=== PATIENT | female | born 1975 | race Caucasian/White ===

== ENCOUNTER 2017-04-17 19:43 | Emergency (ER) | payer BC ==
[~2017-04-17] VITALS: Ht 167.6 cm; Wt 84.9 kg
[~2017-04-17 19:43] MED LIST: MTRUNK PO; ONDA4TAB46 PO; PRENTAB26 PO; TYLUNK PO
[2017-04-17 19:46] VITALS: TEMP 36.7; Ht 167.6 cm; Wt 84.9 kg
[2017-04-17] MEDS ORDERED: HYDROmorphone INJ 1 MG/ML SYR IV STA (20:08)
[2017-04-17] MEDS ORDERED: KETOROLAC TROMETHAMINE 30 MG/ML VIAL IV STA (20:08)
[2017-04-17] MEDS ORDERED: SODIUM CHLORIDE 0.9% 1000ML 1,000 ML IV STA (20:08)
[2017-04-17] MEDS ORDERED: METOCLOPRAMIDE HCL INJ 5 MG/ML 2 ML VIAL IV STA (20:08)
[2017-04-17] MEDS ORDERED: LEVO88TA PO (20:21)
[2017-04-17] MEDS ORDERED: SERT-234 PO (20:21)
--- NOTE | 2017-04-17 20:25 | EMERGENCY ROOM VISIT NOTE ---
History Report prepared by Fanny: Jamar Lal Under the Supervision of: Dr. Tomer Eldridge M.D. First contact with patient: 19:55 Chief Complaint: ABDOMINAL PAIN Stated Complaint: PAIN IN ABD UPPER RIGHT History of Present Illness The patient is a 41 year old female who presents to the Emergency Room with complaints of persistent abdominal pain for the past 4 days. The patient has had off and on pain in her right upper quadrant for the past year. She had a HIDA scan a year ago and it was normal. The patient notes that over the past few days her discomfort has been acute and significantly worse than normal. The discomfort radiates to her back and is worsened with food. She also complains of nausea, GERD, and reflux. She has been taking Zantac and Pepcid. Source of History: patient Onset: past 4 days Position: abdomen (RUQ) Timing: other (persistent) Associated Symptoms: + back pain (radiates to her back ), + nausea Note: Other associated symptoms: GERD and reflux Review of Systems See HPI for pertinent positives & negatives. A total of 10 systems reviewed and were otherwise negative. Past Medical & Surgical Medical Problems: (1) Anxiety (2) Bronchitis (3) Hypothyroid (4) IBS (irritable bowel syndrome) (5) Mitral valve prolapse (6) Stomach problems Surgical Problems: (1) S/P tonsillectomy Family History Unobtainable family history due to adoption Social History Smoking Status: Current Some Day Smoker Alcohol Use: occasionally Marital Status: Housing Status: lives with family Occupation Status: employed Current/Historical Medications Scheduled Cephalexin Monohydrate (Keflex), 500 MG PO QID Levothyroxine Sodium (Synthroid), 88 MCG PO DAILY Sertraline (Zoloft), 200 MG PO DAILY Scheduled PRN Oxycodone/Acetaminophen 5MG/325MG (Percocet 5MG/325MG), 1-2 TAB PO Q4H PRN for Pain Allergies Coded Allergies: Sulfa Drugs (Verified Allergy, Mild, SWOLLEN FACE, ITCHING, 08/30/10) Physical Exam Vital Signs Date Time Temp Pulse Resp B/P Pulse Ox O2 Delivery O2 Flow Rate FiO2 04/18/17 00:11 78 18 133/77 98 04/17/17 23:06 80 18 134/75 98 Room Air 04/17/17 22:37 82 18 125/80 98 Room Air 04/17/17 20:26 98 04/17/17 19:46 36.7 106 18 145/85 99 Room Air Physical Exam GENERAL: Patient is a healthy-appearing well-nourished HEAD: Normocephalic atraumatic EYES: Ocular movements intact pupils equal and react to light OROPHARYNX mucous membranes are moist no exudates present no erythema or edema present NECK: Supple no nuchal rigidity CHEST: Good equal expansion LUNGS: Clear and equal to auscultation CARDIAC: Normal S1 and S2 ABDOMEN: Soft, tenderness to palpation in right upper quadrant, no guarding BACK: No CVA tenderness EXTREMITIES: No pain upon palpation normal muscle strength in all groups no clubbing cyanosis or edema NEURO: Patient is following commands is answering questions appropriately. Alert and oriented x3 Cranial Nerves 2-12 grossly intact Medical Decision & Procedures ER Provider Diagnostic Interpretation: Radiology results as stated below per my review and radiologist interpretation: ABDOMINAL ULTRASOUND, RIGHT UPPER QUADRANT HISTORY: Right upper quadrant abdominal pain. COMPARISON: None. FINDINGS: Hepatic echogenicity is increased. No hepatic lesions are identified on this exam. No definite gallstones are identified. There may be minimal sludge within the gallbladder. There is no gallbladder wall thickening. The pancreatic body is normal. The head and tail are obscured. The caliber of the common bile duct is at upper limits of normal, measuring approximately 6 mm. The common bile duct is partially obscured. IMPRESSION: 1. Fatty liver. 2. No gallstones identified. Possible minimal sludge within the gallbladder. No gallbladder wall thickening. 3. Study compromised by suboptimal penetration. Caliber of common bile duct likely at the upper limits of normal. Largely obscured pancreas. Electronically signed by: Mejia Obregon M.D. 04/17/2017 9:20 PM Dictated Date/Time: 04/17/2017 9:[address] Abdomen & Pelvis: No radiodense gallstones or pancreatitis. Fatty liver. Too small to characterize low attenuation focus in the right kidney. Unremarkable appendix. 4.2 cm left ovarian cyst. Mesenteric nodes. Laboratory Results 04/17/17 20:27 Red Blood Count 4.08, Mean Corpuscular Volume 90.4, Mean Corpuscular Hemoglobin 30.6, Mean Corpuscular Hemoglobin Concent 33.9, Mean Platelet Volume 10.6, Neutrophils (%) (Auto) 57.7, Lymphocytes (%) (Auto) 23.7, Monocytes (%) (Auto) 16.9, Eosinophils (%) (Auto) 1.1, Basophils (%) (Auto) 0.4, Neutrophils # (Auto ) 3.11, Lymphocytes # (Auto) 1.28, Monocytes # (Auto) 0.91, Eosinophils # (Auto ) 0.06, Basophils # (Auto) 0.02 04/17/17 20:27 Test 04/17/17 20:27 04/17/17 21:27 White Blood Count 5.39 K/uL (4.8-10.8) Red Blood Count 4.08 M/uL (4.2-5.4) Hemoglobin 12.5 g/dL (12.0-16.0) Hematocrit 36.9 % (37-47) Mean Corpuscular Volume 90.4 fL (80-100) Mean Corpuscular Hemoglobin 30.6 pg (25-34) Mean Corpuscular Hemoglobin Concent 33.9 g/dl (32-36) Platelet Count 210 K/uL (130-400) Mean Platelet Volume 10.6 fL (7.4-10.4) Neutrophils (%) (Auto) 57.7 % Lymphocytes (%) (Auto) 23.7 % Monocytes (%) (Auto) 16.9 % Eosinophils (%) (Auto) 1.1 % Basophils (%) (Auto) 0.4 % Neutrophils # (Auto) 3.11 K/uL (1.4-6.5) Lymphocytes # (Auto) 1.28 K/uL (1.2-3.4) Monocytes # (Auto) 0.91 K/uL (0.11-0.59) Eosinophils # (Auto) 0.06 K/uL (0-0.5) Basophils # (Auto) 0.02 K/uL (0-0.2) RDW Standard Deviation 43.7 fL (36.4-46.3) RDW Coefficient of Variation 13.2 % (11.5-14.5) Immature Granulocyte % (Auto) 0.2 % Immature Granulocyte # (Auto) 0.01 K/uL (0.00-0.02) Anion Gap 7.0 mmol/L (3-11) Est Creatinine Clear Calc Drug Dose 112.4 ml/min Estimated GFR () 119.4 Estimated GFR (Non- 103.0 BUN/Creatinine Ratio 16.8 (10-20) Calcium Level 8.1 mg/dl (8.5-10.1) Total Bilirubin 0.3 mg/dl (0.2-1) Direct Bilirubin < 0.1 mg/dl (0-0.2) Aspartate Amino Transf (AST/SGOT) 44 U/L (15-37) Alanine Aminotransferase (ALT/SGPT) 70 U/L (12-78) Alkaline Phosphatase 97 U/L (45-117) Total Creatine Kinase 85 U/L (26-192) Creatine Kinase MB 0.8 ng/ml (0.5-3.6) Creatine Kinase MB Ratio 0.9 (0-3.0) Troponin I < 0.015 ng/ml (0-0.045) Total Protein 7.7 gm/dl (6.4-8.2) Albumin 3.7 gm/dl (3.4-5.0) Lipase 126 U/L (73-393) Urine Color YELLOW Urine Appearance CLEAR (CLEAR) Urine pH 6.5 (4.5-7.5) Urine Specific Emmett 1.017 (1.000-1.030) Urine Protein NEG (NEG) Urine Glucose (UA) NEG (NEG) Urine Ketones NEG (NEG) Urine Occult Blood 2+ (NEG) Urine Nitrite NEG (NEG) Urine Bilirubin NEG (NEG) Urine Urobilinogen NEG (NEG) Urine Leukocyte Esterase SMALL (NEG) Urine WBC (Auto) 5-10 /hpf (0-5) Urine RBC (Auto) >30 /hpf (0-4) Urine Hyaline Casts (Auto) 1-5 /lpf (0-5) Urine Epithelial Cells (Auto) >30 /lpf (0-5) Urine Bacteria (Auto) NEG (NEG) Labs reviewed by ED physician. Medications Administered Medications (Trade) Dose Ordered Sig/Jessica Route Start Time Stop Time Status Last Admin Dose Admin Sodium Chloride (Nss 1000ml) 1,000 ml @ 999 mls/hr Q1H1M STAT IV 04/17/17 20:08 04/17/17 21:08 DC 04/17/17 20:36 999 MLS/HR Ketorolac Tromethamine (Toradol Inj) 30 mg NOW STAT IV 04/17/17 20:08 04/17/17 20:10 DC 04/17/17 20:36 30 MG Metoclopramide HCl (Reglan Inj) 10 mg NOW STAT IV 04/17/17 20:08 04/17/17 20:10 DC 04/17/17 20:37 10 MG Miscellaneous Medication (Gi Cocktail) 24 ml NOW STAT PO 04/17/17 21:11 04/17/17 21:13 DC 04/17/17 21:11 24 ML Famotidine (Pepcid Tab) 20 mg NOW STAT PO 04/17/17 21:11 04/17/17 21:13 DC 04/17/17 21:28 20 MG Sucralfate (Carafate Tab) 1 gm NOW STAT PO 04/17/17 21:11 04/17/17 21:13 DC 04/17/17 21:28 1 GM Ceftriaxone Sodium (Rocephin Inj) 1 gm NOW STAT IV 04/17/17 23:25 04/17/17 23:26 DC 04/17/17 23:31 1 GM Cephalexin Monohydrate (Keflex 500MG Home Pack) 1 homepack NOW ONCE PO 04/17/17 23:30 04/17/17 23:31 DC 04/18/17 00:10 1 HOMEPACK Oxycodone/ Acetaminophen (Percocet 5/ 325MG Home Pack) 1 homepack UD ONCE PO 04/17/17 23:45 04/17/17 23:46 DC 04/18/17 00:11 1 HOMEPACK ECG Indication: abdominal pain Rate (beats per minute): 75 Rhythm: normal sinus Findings: no acute ischemic change, no ectopy ED Course 1958: Past medical records reviewed. The patient was evaluated in room A11. A complete history and physical examination was performed. 2007: Ordered Reglan Inj 10 mg IV, Dilaudid Inj 1 mg IV, Toradol Inj 30 mg IV, NSS 1000 ml @ 999 mls/hr IV. 2110: Ordered Carafate Tab 1 gm PO, Pepcid Tab 20 mg PO, Gi Cocktail 24 ml PO. 2324: Ordered Rocephin Inj 1 gm IV. 2331: Ordered Cephalexin Monohydrate 1 homepack PO. 2345: Ordered Oxycodone/ Acetaminophen 1 homepack PO. 2347: Upon reexamination the patient is resting comfortably. I discussed results and treatment plan with the patient. She verbalizes agreement and understanding. The patient is ready for discharge. Medical Decision Differential diagnosis: Etiologies such as appendicitis, diverticulitis, PUD, biliary pathology, UTI, pancreatitis, obstruction, mesenteric ischemia, aortic pathology, infections, inflammatory bowel disease, renal colic, as well as others were entertained. Medication Reconciliation: I attest that I have personally reviewed the patient' s current medication list Blood Pressure Screening: Patient was found to have an elevated blood pressure and was referred to their primary care doctor for recheck and further treatment This is a 41-year-old female who presents emergency department complaining right upper quadrant abdominal pain. Based on the patient's complaint she was sent for an ultrasound of the gallbladder however this does not show any acute process. The patient was also sent for CAT scan of the abdomen pelvis which did not show any evidence of acute process. I am been a placed the patient on an antibiotic for possible kidney infection. I recommended that the patient follow-up with gastroenterology. An IV was established, the patient was given normal saline bolus, Dilaudid, Reglan. Patient has normal EKG as well as CK-MB and troponin. I do believe that she is well enough to be discharged home for follow-up with primary care physician. Patient was in agreement with the treatment plan. Impression Primary Impression: Abdominal pain Scribe Attestation The scribe's documentation has been prepared under my direction and personally reviewed by me in its entirety. I confirm that the note above accurately reflects all work, treatment, procedures, and medical decision making performed by me. Departure Information Dispostion Home / Self-Care Prescriptions Oxycodone/Acetaminophen 5MG/325MG (PERCOCET 5MG/325MG) Tab 1-2 TAB PO Q4H Y for Pain, #14 TAB Prov: Tomer Eldridge MD 04/17/17 Cephalexin Monohydrate (KEFLEX) 500 Mg Cap 500 MG PO QID for 10 Days, #40 CAP Prov: Tomer Eldridge MD 04/17/17 Referrals Ashwin Ortega PA-C (PCP) Forms Call Back Authorization, HOME CARE DOCUMENTATION FORM, IMPORTANT VISIT INFORMATION Patient Instructions ED Abd Pain Unkn Cause Fem, My [facility] Additional Instructions You were found to have an elevated blood pressure today (>120 sytolic or >90 diastolic). Per medicare guidelines, you need to follow up with this blood pressure screening with your Primary Care Physician (PCP). For a new PCP call [phone]. You received narcotic or benzodiazepene medication while in the emergency room today. Do not drive, operate heavy machinery, or drink alcohol under the influence of this medication. Clear liquid diet next 48 hours Take 5 ml Maalox before every meal and at bedtime You have been examined and treated today on an emergency basis only. This is not a substitute for, or an effort to provide, complete comprehensive medical care. It is impossible to recognize and treat all injuries or illnesses in a single emergency department visit. It is therefore important that you follow up closely with your PCP. Call as soon as possible for an appointment. Thank you for your time and consideration. I look forward to speaking with you again soon. Please don't hesitate to call us if you have any questions. Problem Qualifiers Primary Impression: Abdominal pain Abdominal location: generalized Qualified Codes: R10.84 - Generalized abdominal pain
[2017-04-17 20:40] LABS: BASO % 0.4 %; BASO ABS # 0.02 K/uL (0-0.2); COMPLETE YES; EOS % 1.1 %; HEMATOCRIT 36.9 % (37-47); IG% 0.2 %; LYMPH % 23.7 %; LYMPH ABS # 1.28 K/uL (1.2-3.4); MEAN CELL VOLUME 90.4 fL (80-100); MEAN CORPUSCULAR HEMOGLOBIN 30.6 pg (25-34); MEAN CORPUSCULAR HGB CONC 33.9 g/dl (32-36); MEAN PLATELET VOLUME 10.6 fL (7.4-10.4); MONO % 16.9 %; NEUT % 57.7 %; PLATELET COUNT 210 K/uL (130-400); RED BLOOD COUNT 4.08 M/uL (4.2-5.4); WHITE BLOOD COUNT 5.39 K/uL (4.8-10.8)
[2017-04-17 20:58] LABS: BLOOD UREA NITROGEN 12 mg/dl (7-18); BUN/CREATININE RATIO 16.8 (10-20); CALCIUM 8.1 mg/dl (8.5-10.1); CARBON DIOXIDE 27 mmol/L (21-32); CHLORIDE 108 mmol/L (98-107); CREATININE 0.73 mg/dl (0.60-1.20); GLUCOSE 95 mg/dl (70-99); POTASSIUM 3.2 mmol/L (3.5-5.1); SODIUM 142 mmol/L (136-145)
[2017-04-17 21:01] LABS: ALKALINE PHOSPHATASE 97 U/L (45-117); ALT/SGPT 70 U/L (12-78); AST/SGOT 44 U/L (15-37)
[2017-04-17] MEDS ORDERED: GI COCKTAIL PO STA (21:11)
[2017-04-17] MEDS ORDERED: SUCRALFATE 1 GM TAB PO STA (21:11)
[2017-04-17] MEDS ORDERED: FAMOTIDINE 20 MG TAB PO STA (21:11)
[2017-04-17] MEDS ORDERED: ALUMINUM/MAGNESIUM SUSP 30 ML UDC ONE (21:19)
[2017-04-17] MEDS ORDERED: LIDOCAINE HCL 2% VISC SOLN 20 ML UDC ONE (21:19)
--- NOTE | 2017-04-17 21:21 | DIAGNOSTIC IMAGING REPORT ---
ABDOMINAL ULTRASOUND, RIGHT UPPER QUADRANT HISTORY: Right upper quadrant abdominal pain. COMPARISON: None. FINDINGS: Hepatic echogenicity is increased. No hepatic lesions are identified on this exam. No definite gallstones are identified. There may be minimal sludge within the gallbladder. There is no gallbladder wall thickening. The pancreatic body is normal. The head and tail are obscured. The caliber of the common bile duct is at upper limits of normal, measuring approximately 6 mm. The common bile duct is partially obscured. IMPRESSION: 1. Fatty liver. 2. No gallstones identified. Possible minimal sludge within the gallbladder. No gallbladder wall thickening. 3. Study compromised by suboptimal penetration. Caliber of common bile duct likely at the upper limits of normal. Largely obscured pancreas. Electronically signed by: Mejia Obregon M.D. 04/17/2017 9:20 PM Dictated Date/Time: 04/17/2017 9:18 PM
[2017-04-17 21:31] LABS: CKMB/CK RATIO 0.9 (0-3.0)
[2017-04-17 21:49] LABS: URINE APPEARANCE CLEAR (CLEAR); URINE BILIRUBIN NEG (NEG); URINE COLOR YELLOW; URINE EPITHELIAL CELL AUTO >30 /lpf (0-5); URINE NITRITE NEG (NEG); URINE PH 6.5 (4.5-7.5); URINE SPECIFIC GRAVITY 1.017 (1.000-1.030); UROBILINOGEN NEG (NEG)
[2017-04-17 21:56] LABS: MANUAL MICROSCOPIC REQUIRED? NO; REVIEW REQ? NO
[2017-04-17] MEDS ORDERED: OPTIRAY 320 IV PRN (23:15)
[2017-04-17] MEDS ORDERED: CEFTRIAXONE SOD INJ 1 GM ADDVIAL IV STA (23:25)
[2017-04-17] MEDS ORDERED: CEPH500C2 PO (23:27)
[2017-04-17] MEDS ORDERED: CEPHALEXIN 500MG HOME PACK 1 EA BTL PO ONE (23:30)
[2017-04-17] MEDS ORDERED: OXYC-57 PO (23:39)
[2017-04-17] MEDS ORDERED: PERCOCET HOME PACK PO ONE (23:45)
[2017-04-18 00:11] VITALS: BP 133/77; PULSE 78; O2SAT 98
--- NOTE | 2017-04-18 07:23 | DIAGNOSTIC IMAGING REPORT ---
ABDOMEN AND PELVIS CT WITH IV AND ORAL CONTRAST CT DOSE: 617.46 mGy.cm HISTORY: Right upper quadrant abdominal pain. TECHNIQUE: Multiaxial CT images of the abdomen and pelvis were performed following the use of intravenous and oral contrast. COMPARISON STUDY: None. FINDINGS: The lung bases are clear. Tiny fat-containing umbilical hernia. Hepatic steatosis. The gallbladder, pancreas, spleen, and adrenal glands are unremarkable. A 6 mm hypodense lesion within the right kidney is too small to characterize. Normal left kidney. No hydronephrosis. No retroperitoneal lymphadenopathy. A few prominent mesenteric lymph nodes. The bladder is not well-distended but appears unremarkable. Small nabothian cyst. A 3.6 cm left ovarian cyst. No bowel wall thickening or obstruction. Normal appendix. IMPRESSION: 1. No bowel wall thickening or obstruction. 2. Normal appendix. 3. Hepatic steatosis. 4. A 3.6 cm left ovarian cyst. 5. Slightly prominent mesenteric lymph nodes. Electronically signed by: Link Block M.D. 04/18/2017 7:22 AM Dictated Date/Time: 04/18/2017 7:18 AM
== END 2017-04-18 00:12 | disposition home or self-care (01) ==
LOC: C.EDB 19:45 → C.EDA 04-18 00:12
DX: R10.31 Right lower quadrant pain (principal); E03.9 Hypothyroidism, unspecified; F41.9 Anxiety disorder, unspecified; I34.1 Nonrheumatic mitral (valve) prolapse; K58.9 Irritable bowel syndrome, unspecified; F17.200 Nicotine dependence, unspecified, uncomplicated; Z79.899 Other long term (current) drug therapy; Z98.890 Other specified postprocedural states; Z88.2 Allergy status to sulfonamides

== ENCOUNTER 2019-07-15 07:20 | Observation (INO) ==
--- NOTE | 2019-07-03 11:24 | Anesthesiology Consultation ---
Date of Service July 03, 2019 Assessment & Plan (1) Encounter for pre-operative examination: - Check test AM DOS Chart Review Chart Review: Acceptable Risk for Surgery and Patient NOT seen in Pre Admission Testing History Surgery Operation Date: 07/15/19 09:20 Proposed Procedures p Laparoscopic Cholecystectomy, Possible Open - Mack Vieyra MD, FACS Height/Weight Height: 5 ft 6 in Weight: 77.111 kg Allergies Allergy/AdvReac Type Severity Reaction Status Date / Time Sulfa (Sulfonamide Allergy Mild SWOLLEN Verified 06/24/19 16:09 Antibiotics) FACE, ITCHING Medications Home Medications Medication Instructions Recorded Confirmed Last Taken levothyroxine [Synthroid] 75 mcg PO QAM 06/24/19 06/24/19 Unknown levothyroxine [Synthroid] 88 mcg PO QAM 06/24/19 06/24/19 Unknown sertraline 100 mg PO HS 06/24/19 06/24/19 Unknown Past Medical History Medical History Anxiety Heart murmur ?MVP- no recent ECHO/no murmur noted on 06/27/19 PCP evlauation Hypothyroid Past Family History *Patient adopted* Past Surgical History Surgical History Hx of tonsillectomy Hx of wisdom tooth extraction Social History Smoking Status: Former smoker Do You Dip or Chew Tobacco: No Smoking End Date: 2015 Hx Alcohol Use: Yes alcohol intake frequency: holidays/special occasions only Hx Substance Use: No Testing Laboratory Results 06/27/19 WBC 9.1 H/H 13.5/39.9 PLATELETS 292 SODIUM 136 POTASSIUM 4.2 CHLORIDE 103 CO2 27 BUN 14 CREATININE 0.7 GLUCOSE 102 TSH 1.64 Free T4 0.74 Electrocardiogram Date: 06/27/19 SR at 85bpm.
[~2019-07-15 07:20] MED LIST changes: +LR 15ML/HR IV SCH; -MTRUNK PO; -ONDA4TAB46 PO; -PRENTAB26 PO; -TYLUNK PO; +cefUROXime 1,500 MG in DEXTROSE 5% 100 ML IV SCH
[2019-07-15] MEDS ORDERED: PROMETHAZINE HCL 6.25 MG in SODIUM CHLORIDE 0.9% 50 ML IV PRN (08:48)
[2019-07-15] MEDS ORDERED: KETOROLAC 30 MG/ML VIAL IV PRN (08:48)
[2019-07-15] MEDS ORDERED: ONDANSETRON INJ 2 MG/ML 2 ML VIAL IV PRN ×2 (08:48→11:58)
[2019-07-15] MEDS ORDERED: ATROPINE SULFATE 0.1 MG/ML 10ML SYR IV PRN (08:48)
[2019-07-15] MEDS ORDERED: DEXAMETHASONE SOD INJ 4 MG/ML VIAL ONE (09:20)
[2019-07-15] MEDS ORDERED: GLYCOPYRROLATE 0.2 MG/ML VIAL ONE (09:20)
[2019-07-15] MEDS ORDERED: LIDOCAINE HCL 2% 2 ML VIAL/AMP(20MG/ML) INFIL ONE (09:20)
[2019-07-15] MEDS ORDERED: PROPOFOL IV EMULSION 10 MG/ML 20 ML VIAL IV ONE (09:20)
[2019-07-15] MEDS ORDERED: NEOSTIGMINE METHYLSULFATE 5 MG/5 ML SYR ONE (09:20)
[2019-07-15] MEDS ORDERED: MIDAZOLAM HCL 1 MG/ML 2ML VIAL ONE (09:20)
[2019-07-15] MEDS ORDERED: ROCURONIUM BROMIDE 10 MG/ML 5 ML VIAL ONE (09:20)
[2019-07-15] MEDS ORDERED: ONDANSETRON INJ 2 MG/ML 2 ML VIAL ONE (09:20)
[2019-07-15] MEDS ORDERED: fentaNYL citrate 100 MCG/2 ML VIAL ONE (09:21)
[2019-07-15] MEDS ORDERED: BUPIVACAINE 0.5 % 5 MG/1 ML MPF 30ML VIAL ONE (09:28)
[2019-07-15] MEDS ORDERED: KETOROLAC 30 MG/ML VIAL ONE (10:20)
--- NOTE | 2019-07-15 10:30 | Operative Report ---
Post Operative Report Pre & Post Diagnosis Operation Date: 07/15/19 08:40 Pre-Op Diagnosis: Chronic cholecystitis Post-Op Diagnosis: Chronic cholecystitis adhesions Procedure Operation Date: 07/15/19 08:40 Actual Procedures p Laparoscopic Cholecystectomy - Mack Vieyra MD, FACS lysis of adhesions Surgeon Mack Vieyra MD, FACS English Language Learner Teacher Monica Ramos Estimated Blood Loss 5 Findings Consistent with Post-Op Diagnosis Specimens gallbladder Description of Procedure see dictation I attest to the content of the Intraoperative Record and any orders documented therein. Any exceptions are noted below.
[2019-07-15] MEDS ORDERED: ACETAMINOPHEN 1,000 MG/100 ML VIAL IV ONE (10:34)
[2019-07-15] MEDS: HYDROmorphone INJ 1 MG/ML SYRINGE IV PRN ×2 (11:16→11:23)
--- NOTE | 2019-07-15 11:31 | Operative Report ---
DATE OF OPERATION: 07/15/2019 NAME OF OPERATION: Laparoscopic cholecystectomy with lysis of adhesions. PREOPERATIVE DIAGNOSIS: Biliary colic. POSTOPERATIVE DIAGNOSIS: Biliary colic with chronic cholecystitis and adhesions. STAFF SURGEON: Mack Vieyra M.D. ROCK CRUSHING MACHINE OPERATOR: Ligia Ramos. ANESTHESIA: General. DESCRIPTION OF PROCEDURE: The patient was brought in the operating room and placed on the operating table in supine position. Her abdomen was prepped and draped in usual fashion. Pneumatic stockings, orogastric tube were placed. My social media assistant helped with prepping, draping, removal of the gallbladder and closure of the wounds. Initially, incision was made just above the umbilicus using 0.5% plain Marcaine to anesthetize all the skin and subcutaneous tissue. Dissection was carried down to the fascia, placing a Veress needle producing pneumoperitoneum. An 11 mm port was placed at this level and then under visualization, three 5 mm ports were placed, 1 cephalad and 2 laterally. Gallbladder was grasped and retracted. It was very distended. There were adhesions to the gallbladder. These were taken down. The gallbladder was then aspirated of bile. Dissection was carried out the syed hepatis. There was some scar tissue in that area and also in the posterior wall of the gallbladder as well as a very small cystic duct. These all are consistent with chronic cholecystitis. The cystic duct and cystic artery were identified, clipped and transected and the gallbladder dissected away from the liver bed in the usual fashion. After appropriate hemostasis and irrigation, the gallbladder was placed in an Endobag and then removed through the umbilical site. All ports were then removed. The fascia at the umbilicus closed using interrupted 0 Vicryl suture. Skin at all incisions closed using subcuticular 4-0 Monocryl. Skin at the umbilicus also closed using Dermabond and then Steri-Strips placed on the other sites. The patient transferred to recovery room in stable condition. I attest to the content of the Intraoperative Record and any orders documented therein. Any exception s are noted below.
[2019-07-15] MEDS ORDERED: MoRPHine SULFATE 2 MG/ML CARP IV PRN ×2 (11:58)
[2019-07-15] MEDS ORDERED: HYDROCODONE/ACETAMOPHEN 5/325MG TAB PO PRN (11:58)
[2019-07-15] MEDS ORDERED: PROMETHAZINE HCL 25 MG in SODIUM CHLORIDE 0.9% 50 ML IV PRN (11:58)
[2019-07-15] MEDS ORDERED: PROMETHAZINE HCL 12.5 MG in SODIUM CHLORIDE 0.9% 50 ML IV PRN (11:58)
--- NOTE | 2019-07-15 12:05 | Anesthesiology Progress Note ---
Date of Service July 15, 2019 Anesthesia Post Procedure Vital Signs Vital Signs: Temp Pulse Pulse Resp BP BP Pulse Ox 07/15/19 11:30 68 12 106/58 L 98 07/15/19 11:20 68 12 114/70 93 07/15/19 11:10 36.2 C L 77 12 108/66 96 07/15/19 11:00 72 14 121/59 L 99 07/15/19 10:50 73 14 112/69 97 07/15/19 10:43 36.4 C L 86 21 127/71 95 07/15/19 07:54 36.8 C 94 H 20 144/85 H 99 Pain Intensity Right Upper Abdomen: Pain Intensity: 1 Abdomen: Pain Intensity: 3 Transfer of Care Handoff Completed per policy Notes Mental Status: alert / awake / arousable Patient Amnestic to Procedure: Yes Nausea / Vomiting: adequately controlled Pain: adequately controlled Airway Patency, RR, SpO2: stable & adequate BP & HR: stable & adequate Hydration State: stable & adequate Anesthetic Complications: no major complications apparent
[2019-07-15] MEDS ORDERED: LACTATED RINGER'S 1,000 ML IV SCH (13:00)
[2019-07-15] MEDS: HYDROCODONE/ACETAMOPHEN 5/325MG TAB PO PRN (18:00)
[2019-07-15] MEDS ORDERED: SERTRALINE HCL 100 MG TABLET PO SCH (21:00)
[2019-07-16] MEDS: HYDROCODONE/ACETAMOPHEN 5/325MG TAB PO PRN (00:10)
[2019-07-16] MEDS ORDERED: LEVOTHYROXINE SODIUM 75 MCG TABLET PO SCH (06:30)
--- NOTE | 2019-07-16 06:41 | Discharge Summary ---
PRINCIPAL DIAGNOSIS: Chronic cholecystitis. PROCEDURES: The patient underwent laparoscopic cholecystectomy with lysis of adhesions. HISTORY OF PRESENT ILLNESS: The patient is a 43-year-old female who has been having intermittent recurrent abdominal pain felt to be a biliary colic. HOSPITAL COURSE: She was brought into the hospital on 07/15/2019 where she underwent elective laparoscopic cholecystectomy with findings of significant adhesions to the gallbladder and distended gallbladder. She tolerated the operation very well and is felt stable for discharge home today, to be followed in the surgical clinic within 1-2 weeks.
--- NOTE | 2019-07-16 08:38 | Anesthesiology Progress Note ---
Date of Service July 16, 2019 Anesthesia Post Procedure Vital Signs Vital Signs: Temp Pulse Pulse Resp BP BP Pulse Ox 07/16/19 07:26 36.7 C 77 16 114/69 93 07/15/19 23:05 36.7 C 91 H 18 117/66 94 07/15/19 19:07 36.6 C 100 H 18 112/70 94 07/15/19 14:57 36.5 C 86 16 107/66 91 07/15/19 13:46 36.6 C 8 L 18 105/64 93 07/15/19 12:47 36.6 C 79 18 109/66 96 07/15/19 12:17 36.6 C 71 20 99/62 L 96 07/15/19 11:50 36.5 C 80 18 100/64 95 07/15/19 11:30 68 12 106/58 L 98 07/15/19 11:20 68 12 114/70 93 07/15/19 11:10 36.2 C L 77 12 108/66 96 07/15/19 11:00 72 14 121/59 L 99 07/15/19 10:50 73 14 112/69 97 07/15/19 10:43 36.4 C L 86 21 127/71 95 Pain Intensity Right Upper Abdomen: Pain Intensity: 0 Abdomen: Pain Intensity: 4 Notes Mental Status: alert / awake / arousable and participated in evaluation Patient Amnestic to Procedure: Yes Nausea / Vomiting: adequately controlled Pain: adequately controlled Airway Patency, RR, SpO2: stable & adequate BP & HR: stable & adequate Hydration State: stable & adequate Anesthetic Complications: no major complications apparent and Pt Satisfied with anesthetic care
[2019-07-17] MEDS ORDERED: LEVOTHYROXINE SODIUM 88 MCG TABLET PO SCH (06:30)
== END 2019-07-16 09:27 | disposition home or self-care (01) ==
LOC: 3W 07:20 → ASU 07:20